=== PATIENT | male | born 1965 | race Caucasian/White ===

== ENCOUNTER 2019-07-09 12:44 | Outpatient (CLI) | payer OTHER ==
--- NOTE | 2019-07-09 16:15 | MRI ---
MRI LEFT SHOULDER: Date: 07-09-2019 Provided Clinical History: Left shoulder pain. FINDINGS: There are full thickness, full width retracted tears of the supraspinatus and infraspinatus tendons, with retraction to about the level of the glenohumeral joint. Partial thickness undersurface tearing involving the cranial fibers of the subscapularis is suspected. Teres minor appears intact. There is disruption of the intraarticular long head biceps tendon at the biceps anchor, with retraction to the caudal aspects of the bicipital groove. Glenoid labrum and glenohumeral articular cartilage are suboptimally evaluated on the basis of this e xamination but appear otherwise unremarkable. The amount of fluid within the glenohumeral joint appea rs physiologic. There is increased signal intensity on fluid sensitive sequences involving the infraspinatus muscle d iffusely. Rotator cuff muscular volume appears preserved. Acromioclavicular joint osteoarthrosis is demonstrated without significant mass effect upon the subja cent supraspinatus. IMPRESSION: 1. Full thickness retracted tears of supraspinatus and infraspinatus. 2. Probable partial thickness undersurface tear involving the cranial fibers of subscapularis. 3. Intraarticular long head biceps tendon disruption at biceps anchor with retraction of bicipital gr ove. 4. Increased signal intensity on fluid sensitive sequences involving the infraspinatus muscle diffuse ly. This may reflect denervation versus muscular strain, with the former favored. POS: INGE
== END 2019-07-09 12:45 | disposition home or self-care (01) ==
LOC: BICMRI 12:44
PROVIDERS: ATTEND Orthopaedic Surgery
DX: C71.9 Malignant neoplasm of brain, unspecified (principal); M25.512 Pain in left shoulder; M75.122 Complete rotator cuff tear or rupture of left shoulder, not specified as traumatic

== ENCOUNTER 2019-08-07 15:35 | Emergency (ER) | payer OTHER ==
[2019-08-08 10:11] LABS: SARS-CoV-2 MS2 Positive; SARS-CoV-2 N Gene Negative; SARS-CoV-2 S Gene Negative; SARS-CoV-2 orf1ab Negative
== END 2019-08-07 16:20 | disposition home or self-care (01) ==
LOC: ERS 15:35
DX: R68.83 Chills (without fever) (principal); E03.9 Hypothyroidism, unspecified; I10 Essential (primary) hypertension; Z20.828 Contact with and (suspected) exposure to other viral communicable diseases
CPT/HCPCS: 87635; 99283; U0003

== ENCOUNTER 2019-09-16 21:55 | Emergency (ER) | payer OTHER ==
[2019-09-16] MEDS ORDERED: Morphine 2 MG/ML SYRINGE ONE (22:13)
[2019-09-16] MEDS ORDERED: Dexamethasone 10 MG/ML VIAL ONE (22:41)
--- NOTE | 2019-09-17 09:05 | CT ---
HEAD CT WITHOUT CONTRAST: DATE: 09/16/2019. COMPARISON: 07/25/2015. HISTORY: Confusion and shaking. TECHNIQUE: Axial CT imaging at 5 mm intervals from the vertex through the skull base without contrast. FINDINGS: The visualized paranasal sinuses and mastoid air cells are well aerated. There is evidence of prior craniotomy on the right. No acute osseous abnormality is noted. There is extensive abnormal hypodensity on the right within the deep subcortical and periventricular white matter of the right temporal and right parietal lobes extending into the region of the right oc cipital lobe, new when compared to the prior exam. Abnormal hypodensity extends into the region of t he splenium of the corpus callosum. This exerts mass effect on the right lateral ventricle which is slightly flattened anteriorly. No associated intracranial hemorrhage. There is mild mass effect on the third ventricle. There is minimal [id number] midline shift at the axial level of the septum pellucidum anteriorly m easuring in the 3-4 mm range. IMPRESSION: There is extensive new hypodensity within the periventricular deep and subcortical white matter of th e right temporal, right parietal, and right occipital lobes with extension into the region of the spl enium of the corpus callosum. 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 Mass effect and minimal midline shift noted as detailed above. Results called to Dr. Martin 10:34 p.m. 09/16/2019. CODE CR
== END 2019-09-17 00:04 | disposition home or self-care (01) ==
LOC: ERS 21:55
DX: C71.9 Malignant neoplasm of brain, unspecified (principal); E03.9 Hypothyroidism, unspecified; I10 Essential (primary) hypertension; Z79.899 Other long term (current) drug therapy
CPT/HCPCS: 70450; 96372; J1100; J2270